=== PATIENT | male | born 1995 | race Caucasian/White ===

== ENCOUNTER 2021-01-21 15:02 | Emergency (ER) | payer BC ==
[~2021-01-21] VITALS: Ht 185.4 cm; Wt 127.0 kg
[2021-01-21 15:02] VITALS: BP 149/94
[2021-01-21] MEDS ORDERED: PROAIR HFA8.5 GM INH (15:08)
[2021-01-21] MEDS ORDERED: NORCO5 PO (16:14)
== END 2021-01-21 16:07 | disposition home or self-care (01) ==
LOC: ER 15:02
DX: M25.561 Pain in right knee (principal); Z79.899 Other long term (current) drug therapy; Z88.0 Allergy status to penicillin